=== PATIENT | male | born 1950 | race Caucasian/White ===

== ENCOUNTER 2017-03-03 20:50 | Emergency (ER) | payer OTHER ==
[2017-03-03 20:56] VITALS: BP 144/69; PULSE 74; TEMP 98.7; BMI 28.7
[2017-03-03] MEDS ORDERED: diazePAM 5 MG TABLET PO ONE (21:08)
[2017-03-03] MEDS ORDERED: KETOROLAC TROMETHAMINE 60 MG/2 ML VIAL IM ONE (21:08)
--- NOTE | 2017-03-03 21:09 | PDOC ---
History of Present Illness - General History Source: Patient Exam Limitations: No Limitations - History of Present Illness Initial Comments: 03/03/17 21:27 The patient is a 66-year-old male, with a significant past medical history of afib (resolved with two cardiac ablasions), who presents to the ED with right neck spasm today. For the past 4 days the patient states that he has been experiencing right neck pain. He has tried Aleve, acupuncture, and massages to alleviate the pain but he is now experiencing neck spasms with pain shooting down his right arm. Pain is worsened with movement. Pt reports that he was hiking last week and was tested for lyme disease; results were equivocal. He denies having any other symptoms or injuries. <Sharda Mary - Last Filed: 03/03/17 21:27> <Niharika Holden - Last Filed: 03/03/17 23:47> - General Chief Complaint: Pain, Acute Stated Complaint: NECK PAIN Past History <Sharda Mary - Last Filed: 03/03/17 21:27> - Past Medical History Cardiac Disorders: Yes (AFIB) - Surgical History Cardiac Surgery: Yes (ABLATION) - Psycho/Social/Smoking Cessation Hx Anxiety: No Suicidal Ideation: No Smoking History: Never smoked <Niharika Holden - Last Filed: 03/03/17 23:47> - Past Medical History Allergies/Adverse Reactions: Allergies Allergy/AdvReac Type Severity Reaction Status Date / Time No Known Allergies Allergy Unverified 03/03/17 20:51 Home Medications: Ambulatory Orders Ibuprofen [Motrin -] 600 mg PO TID #30 tablet 03/03/17 Methocarbamol [Robaxin -] 500 mg PO TID #30 tablet 03/03/17 Review of Systems - Review of Systems Able to Perform ROS?: Yes Comments:: 03/03/17 21:37 CONSTITUTIONAL: Absent: fever, chills, diaphoresis, generalized weakness, malaise, loss of appetite HEENT: Present: right neck pain and spasm Absent: rhinorrhea, nasal congestion, throat pain, throat swelling, difficulty swallowing, mouth swelling, ear pain, eye pain, visual Changes CARDIOVASCULAR: Absent: chest pain, syncope, palpitations, irregular heart rate, lightheadedness , peripheral edema RESPIRATORY: Absent: cough, shortness of breath, dyspnea with exertion, orthopnea, wheezing, stridor, hemoptysis GASTROINTESTINAL: Absent: abdominal pain, abdominal distension, nausea, vomiting, diarrhea, constipation, melena, hematochezia GENITOURINARY: Absent: dysuria, frequency, urgency, hesitancy, hematuria, flank pain, genital pain MUSCULOSKELETAL: Absent: arthralgia, joint swelling SKIN: Absent: rash, itching, pallor HEMATOLOGIC/IMMUNOLOGIC: Absent: easy bleeding, easy bruising, lymphadenopathy, frequent infections ENDOCRINE: Absent: unexplained weight gain, unexplained weight loss, heat intolerance, cold intolerance NEUROLOGIC: Absent: headache, focal weakness or paresthesias, dizziness, unsteady gait, seizure, mental status changes, bladder or bowel incontinence PSYCHIATRIC: Absent: anxiety, depression, suicidal or homicidal ideation, hallucinations. <Sharda Mary - Last Filed: 03/03/17 21:27> *Physical Exam - Vital Signs Last Vital Signs Temp Pulse Resp BP Pulse Ox 98.7 F 74 16 144/69 99 03/03/17 20:54 03/03/17 20:54 03/03/17 20:54 03/03/17 20:54 03/03/17 20:54 - Physical Exam Comments: 03/03/17 21:38 GENERAL: Well developed, well nourished. Awake and alert. No acute distress. HEENT: Normocephalic, atraumatic. PERRLA, EOMI. No conjunctival pallor. Sclera are non- icteric. Moist mucous membranes. Oropharynx is clear. NECK: No JVD. Carotid pulses 2+ and symmetric, without bruits. No thyromegaly. No lymphadenopathy. (+)exquisite spasm at the right side of neck. CARDIOVASCULAR: Regular rate and rhythm. No murmurs, rubs, or gallops. Distal pulses are 2+ and symmetric. PULMONARY: No evidence of respiratory distress. Lungs clear to auscultation bilaterally. No wheezing, rales or rhonchi. ABDOMINAL: Soft. Non-tender. Non-distended. No rebound or guarding. No organomegaly. Normoactive bowel sounds. MUSCULOSKELETAL Normal range of motion at all joints. No bony deformities or tenderness. No CVA tenderness. EXTREMITIES: No cyanosis. No clubbing. No edema. No calf tenderness. SKIN: Warm and dry. Normal capillary refill. No rashes. No jaundice. NEUROLOGICAL: Alert, awake, appropriate. PSYCHIATRIC: Cooperative. Good eye contact. Appropriate mood and affect. <Sharda Mary - Last Filed: 03/03/17 21:27> - Vital Signs Last Vital Signs Temp Pulse Resp BP Pulse Ox 98.7 F 74 16 144/69 99 03/03/17 20:54 03/03/17 20:54 03/03/17 20:54 03/03/17 20:54 03/03/17 20:54 <Niharika Holden - Last Filed: 03/03/17 23:47> ED Treatment Course - Medications Given in the ED: ED Medications Discontinued Medications Generic Name Dose Route Start Last Admin Trade Name Alma Rosa PRN Reason Stop Dose Admin Diazepam 5 mg 03/03/17 21:08 03/03/17 21:21 Valium - PO 03/03/17 21:09 5 mg ONCE ONE Administration Ketorolac Tromethamine 60 mg 03/03/17 21:08 03/03/17 21:20 Toradol Injection - IM 03/03/17 21:09 60 mg ONCE ONE Administration Oxycodone/Acetaminophen 2 combo 03/03/17 21:08 03/03/17 21:20 Percocet 5/325 - PO 03/03/17 21:09 2 combo ONCE ONE Administration <Sharda Mary - Last Filed: 03/03/17 21:27> Medical Decision Making - Medical Decision Making 03/03/17 22:46 Pt comes with neck spasm. He was treated with percocet and toradol and valium and he is feeling better. CT c-spine result is still pending. Pt is feeling better. We imaged mehdi, as he has shooting pain radiating down the right arm, and he has never had this in the past. 03/03/17 22:49 Patient Name: LILLY FISHMAN THIS IS A PRELIMINARY REPORT FROM [facility] EXAM: CT CERVICAL SPINE without IV contrast DATE \T\ TIME: 2017-03-03 21:30:30 NUMBER OF IMAGES: [id number] REASON FOR EXAM: Neck pain down the arm COMPARISON: None FINDINGS: Straightening of the curvature. No acute fracture, subluxation or abnormal prevertebral soft tissue swelling noted. Facet joints mildly enlarged but intact. Spinous processes intact. Underlying degenerative disc disease and facet arthropathy particularly at C4-5 , C5-6 and C6-7 with endplate osteophytes and disc bulging combination. Minimal anterolisthesis at C4-5 without facet fracture related to degenerative spondylosis. Multiple bilateral neuroforaminal narrowing secon uncovertebral spurs and facet enlargement particularly at right C5-6 and left C6-7. No neck soft tissue hemorrhage or edema seen. No pneumothorax in the lung apices. THIS DOCUMENT HAS BEEN ELECTRONICALLY SIGNED <Niharika Holden - Last Filed: 03/03/17 23:47> *DC/Admit/Observation/Transfer - Attestations Scribe Attestion: 03/03/17 21:41 Documentation prepared by Sharda Mary, acting as medical field representative for Niharika Holden MD. <Sharda Mary - Last Filed: 03/03/17 21:27> - Discharge Dispostion Admit: No <Niharika Holden - Last Filed: 03/03/17 23:47> Diagnosis at time of Disposition: Neural foraminal stenosis of cervical spine, DJD (degenerative joint disease) of cervical spine - Discharge Dispostion Disposition: HOME Condition at time of disposition: Improved - Referrals Referrals: Yobani Mora [Primary Care Provider] - Detsin Camacho MD [Staff Physician] - - Patient Instructions Printed Discharge Instructions: DI for Neck Pain, DI for Cervical Radiculopathy
[2017-03-03] MEDS ORDERED: diazePAM 5 MG TABLET ONE (21:17)
[2017-03-03] MEDS ORDERED: KETOROLAC TROMETHAMINE 60 MG/2 ML VIAL ONE (21:17)
== END 2017-03-03 23:11 | disposition home or self-care (01) ==
LOC: FER 20:50
PROC: 3E0233Z Introduction of Anti-inflammatory into Muscle, Percutaneous Approach (ICD-10-PCS; principal; 2017-03-03)
DX: M48.00 Spinal stenosis, site unspecified (principal); M19.90 Unspecified osteoarthritis, unspecified site
CPT/HCPCS: 72125-TC; 99282-25